=== PATIENT | female | born 1960 | race American Indian/Alaskan Native ===

== ENCOUNTER 2017-01-28 18:33 | Emergency (ER) | payer BC ==
--- NOTE | 2017-01-28 18:44 | Emergency Department Report ---
Chief Complaint: Abdominal Pain Stated Complaint: KIDNEY PAIN Time Seen by Provider: 01/28/17 18:41 - HPI History of Present Illness: PT c/o L flank pain since Friday PT states her urine was darker than normal yesterday but it was clear today - ROS Review of Systems: + flank pain - dysuria - vomiting - Exam Physical Exam: PT with L flank pain appears in pain, tearful MSE screening note: Focused history and physical exam performed. Due to findings the following was ordered: labs, ct ED Disposition for MSE Condition: Stable
[2017-01-28 19:05] LABS: Basophils % (Auto) 0.6 % (0.0-1.8); Hematocrit 37.5 % (30.3-42.9); Hemoglobin 12.5 gm/dl (10.1-14.3); Mean Corpuscular HGB Conc 33 % (30-34); Mean Corpuscular Hemoglobin 30 pg (28-32); Mean Corpuscular Volume 89 fl (79-97); Platelet Count 212 K/mm3 (140-440); Red Blood Count 4.19 M/mm3 (3.65-5.03); White Blood Count 5.7 K/mm3 (4.5-11.0)
[2017-01-28 19:21] LABS: Alanine Aminotransferase 13 units/L (7-56); Albumin 4.2 g/dL (3.9-5); Albumin/Globulin Ratio 1.3 %; Alkaline Phosphatase 80 units/L (35-129); Anion Gap 17 mmol/L; Blood Urea Nitrogen 13 mg/dL (7-17); Calcium 9.4 mg/dL (8.4-10.2); Carbon Dioxide 28 mmol/L (22-30); Chloride 102.1 mmol/L (98-107); Glucose 84 mg/dL (65-100); Lipase 49 units/L (13-60); Potassium 3.7 mmol/L (3.6-5.0); Sodium 143 mmol/L (137-145); Total Protein 7.4 g/dL (6.3-8.2)
[2017-01-28 19:49] LABS: Bacteria,Urine 1+ /HPF (Negative); Bilirubin,Urine NEG (Negative); Blood,Urine NEG (Negative); Ketones,Urine TR mg/dL (Negative); Leukocyte Esterase,Urine SM (Negative); Mucus,Urine 3+ /HPF; Nitrite,Urine NEG (Negative); Urobilinogen,Urine < 2.0 mg/dL (<2.0)
--- NOTE | 2017-01-28 20:04 | Cat Scan Report ---
FINAL REPORT EXAM: CT ABDOMEN PELVIS WO CON HISTORY: L flank pain TECHNIQUE: Unenhanced stone protocol CT of the abdomen and pelvis at 2.5 millimeter axial increments. Coronal and sagittal reconstruction was also performed. PRIORS: None. FINDINGS: There is no evidence for renal hydronephrosis. There is a nonobstructing 2 mm calculus in the upper pole right kidney. No evidence for bilateral ureteral or bladder calculus is seen. No evidence for renal or bladder mass is noted. Otherwise, within the limits of a noncontrast exam, the liver, spleen, pancreas, gallbladder, and adrenal glands are unremarkable. No evidence for retroperitoneal or pelvic lymphadenopathy is seen. Moderate stool is present throughout the colon. The bowel loops have normal caliber. No fluid collection, inflammatory change, or free air is seen within the abdomen or pelvis. The appendix is normal located lateral to the ascending colon. Within the pelvis, the uterus has been surgically removed. Images through the upper abdomen include the lung bases which are expanded and clear. Bony structures show degenerative changes at the left greater trochanter. Moderate degenerative disc narrowing L5-S1 is seen with a subtle, grade 1, retrolisthesis of L5 on S1. IMPRESSION: 1. No evidence for renal obstruction. Nonobstructing 2 mm calculus in the upper pole right kidney. 2. Otherwise, negative CT of the abdomen and pelvis.
[2017-01-28] MEDS ORDERED: TORADOL ONE (21:04)
[2017-01-28] MEDS ORDERED: NORCO 5/325 ONE (21:04)
[2017-01-28] MEDS ORDERED: NORCO 5/325 PO ONE (21:10)
[2017-01-28] MEDS ORDERED: TORADOL IM ONE (21:10)
[2017-01-28] MEDS ORDERED: MORPHINE IV ONE (23:57)
--- NOTE | 2017-01-29 00:08 | Emergency Department Report ---
HPI - General Chief Complaint: Abdominal Pain Time Seen by Provider: 01/28/17 18:41 - HPI HPI: This is a 56-year-old Afro-[place]ian female presents to the emergency department with a five-day history of left-sided back pain from the mid back down to the lumbar back. She denies any trauma to the area. She's been taking ibuprofen for her pain without any relief. She denies any skin color change or rash to this area. The pain worsens with palpation and certain movements. She said that she had some slight difficulty with urination earlier today but for the rest the week there is been no issues with bowel or bladder. She denies any numbness, paresthesias, fever, vaginal bleeding or discharge. She has a past medical history of hypertension and a very remote history of left-sided kidney problems and surgery including stones and stents from the 70s. Her primary care doctor is Dr. Walsh and she has an appointment with them tomorrow. No recent travel or sick contacts at home. ED Past Medical Hx - Past Medical History Previous Medical History?: Yes Hx Hypertension: Yes - Surgical History Past Surgical History?: Yes Additional Surgical History: kidney surgery - Social History Smoking Status: Never Smoker Substance Use Type: None - Medications Home Medications: Home Medications Medication Instructions Recorded Confirmed Last Taken Type HYDROcodone/APAP 5-325 [[place] 1 each PO Q6HR PRN #10 tablet 01/29/17 Unknown Rx 5/325] ED Review of Systems ROS: Stated complaint: KIDNEY PAIN Other details as noted in HPI Comment: All other systems reviewed and negative Constitutional: denies: chills, fever Eyes: denies: eye pain, eye discharge, vision change ENT: denies: ear pain, throat pain Respiratory: denies: cough, shortness of breath, wheezing Cardiovascular: denies: chest pain, palpitations Gastrointestinal: denies: abdominal pain, nausea, diarrhea Genitourinary: denies: urgency, dysuria, discharge Musculoskeletal: back pain. denies: arthralgia Skin: denies: rash, lesions Neurological: denies: headache, weakness, paresthesias Physical Exam - Physical Exam Vital Signs: Vital Signs 01/28/17 01/29/17 18:41 00:03 Temperature 98.5 F Pulse Rate 93 H 74 Respiratory 18 16 Rate Blood Pressure 175/120 Blood Pressure 205/104 [Left] O2 Sat by Pulse 100 95 Oximetry Physical Exam: GENERAL: The patient is well-developed well-nourished. HEENT: Normocephalic. Atraumatic. Extraocular motions are intact. Patient has moist mucous membranes. Pupils equal reactive to light bilaterally. NECK: Supple. Trachea is midline. CHEST/LUNGS: Clear to auscultation. There is no respiratory distress noted. HEART/CARDIOVASCULAR: Regular. There is no tachycardia. There is no gallop rub or murmur. ABDOMEN: Abdomen is soft, nontender. Patient has normal bowel sounds. There is no abdominal distention. SKIN: Skin is warm and dry. NEURO: The patient is awake, alert, and oriented. The patient is cooperative. The patient has no focal neurologic deficits. The patient has normal speech. Cranial nerves II-12 grossly intact. MUSCULOSKELETAL: There is no tenderness or deformity. There is no limitation range of motion. There is no evidence of acute injury. Muscle strength 5 out of 5 for upper and lower extremities bilaterally. BACK: No midline thoracic or lumbar tenderness to palpation or deformity. There is an area to the left lateral back where it meets the flank and over the inferior portion of the rib cage in this area as well with the patient has reproducible pain to palpation. There is no obvious deformity otherwise in this area. ED Course Vital Signs 01/28/17 01/29/17 18:41 00:03 Temperature 98.5 F Pulse Rate 93 H 74 Respiratory 18 16 Rate Blood Pressure 175/120 Blood Pressure 205/104 [Left] O2 Sat by Pulse 100 95 Oximetry ED Medical Decision Making - Lab Data Result diagrams: 01/28/17 18:48 01/28/17 18:48 - Radiology Data Radiology results: report reviewed, image reviewed interpreted by me: Chest x-ray did not show any acute process. Heart is normal shape and size. No effusions. No pneumothorax. No signs of pneumonia seen. CT of the abdomen and pelvis with IV contrast shows a nonobstructing 2 mm stone in the right upper pole of the kidney. Otherwise there is no acute process seen. - Medical Decision Making 56-year-old female presents to the emergency department with the complaint of some pain to the left lateral back and rib cage area around the flank has been bothering her over the past few days. It causes sharp spasmodic pains. It appears to worsen with palpation in this area as well as certain movements of her body. Labs are unremarkable and do not show any etiology of the symptoms. The patient has a history of kidney stones and had a CT of the abdomen and pelvis without contrast done, ordered through triage, to rule out nephrolithiasis as the source of her discomfort. However there was no kidney stone seen on the left side and the one on the right side with small and nonobstructing because it was in the upper pole of the kidney itself. Urinalysis does not show any significant urinary tract infection or hematuria that would make me think that there is an obvious stone that recently passed and there is no signs of hydronephrosis. Patient was given some pain medication for her symptoms. There are times where her pain appears to improve and then she will make some type of movement or there will be palpation of the area and then the pain worsens again. While it is possible that the patient passed a kidney stone and has some residual pain, it does appear more likely that she is having some type of musculoskeletal discomfort or neuropathy. She has a plan with her primary care physician in the morning and she appears stable for discharge home at this point to follow-up with the PCP as previously scheduled. She was given some pain medication. The patient does have a history of hypertension and had some elevated blood pressure at some points during the ED course. She received 1 dose of hydralazine and her blood pressure came down to a much more reasonable level. She will return to the ER with any worsening of her symptoms or any acute distress. Critical Care Time: No Critical care attestation.: If time is entered above; I have spent that time in minutes in the direct care of this critically ill patient, excluding procedure time. ED Disposition Clinical Impression: Hypertension Qualifiers: Hypertension type: essential hypertension Qualified Code(s): I10 - Essential ( primary) hypertension Back pain Qualifiers: Back pain location: back pain in unspecified location Chronicity: unspecified Back pain laterality: left Qualified Code(s): M54.9 - Dorsalgia, unspecified Disposition: DC-01 TO HOME OR SELFCARE Is pt being admited?: No Condition: Stable Instructions: Hypertension (ED), Back Pain (ED) Additional Instructions: Please follow-up with your primary care physician tomorrow as previously scheduled. Return to the emergency department with any worsening of her symptoms or any acute distress. You've been prescribed a medication that is sedating. Therefore this medication cannot be mixed with alcohol, or taken prior to driving, working, or being responsible for children. Prescriptions: HYDROcodone/APAP 5-325 [[place] 5/325] 1 each PO Q6HR PRN #10 tablet PRN Reason: Pain Referrals: PRIMARY CARE, [Primary Care Provider] - CHRISTOPHER Time of Disposition: 02:40
[2017-01-29] MEDS ORDERED: APRESOLINE IV ONE (00:58)
[2017-01-29] MEDS ORDERED: MORPHINE IV ONE (01:36)
[2017-01-29 02:25] VITALS: BP 153/87
--- NOTE | 2017-01-29 07:11 | XRay Report ---
AP CHEST: HISTORY: chest pain AP view of the chest demonstrates a normal mediastinal and cardiac contour with clear lungs and normal bony and soft tissue structures. IMPRESSION: Unremarkable AP chest.
== END 2017-01-29 02:55 | disposition home or self-care (01) ==
LOC: ED 18:33
DX: M54.9 Dorsalgia, unspecified (principal); I10 Essential (primary) hypertension; R10.9 Unspecified abdominal pain; Z98.890 Other specified postprocedural states
CPT/HCPCS: 36415; 71010; 74176; 80053; 81001; 83690; 85025; 96372; 96374; 96375; 99285; J0360; J1885; J2270

== ENCOUNTER 2017-06-16 10:40 | Outpatient (CLI) | payer BC ==
--- NOTE | 2017-06-16 15:47 | Mammography Report ---
BILATERAL DIGITAL SCREENING MAMMOGRAM with CAD : 06/16/17 10:40:00 CLINICAL: Routine screening. COMPARISON:03/11/16 and 11/29/15 FINDINGS: The breasts are heterogeneously dense, which may obscure small masses. No mass, architectural distortion or suspicious calcifications. IMPRESSION: No mammographic evidence of malignancy. BI-RADS CATEGORY: 2 -- Benign RECOMMENDATION: Routine mammographic screening in one year. COMMENT: Patient follow-up letters are generated by our [employer] application.
== END 2017-06-16 10:41 | disposition home or self-care (01) ==
LOC: SPVWC 10:40
PROVIDERS: ATTEND Surgery
DX: Z12.31 Encounter for screening mammogram for malignant neoplasm of breast (principal)
CPT/HCPCS: 77067; G0202